=== PATIENT | male | born 1960 | race Caucasian/White ===

== ENCOUNTER 2016-05-28 11:46 | Emergency (ER) | payer OTHER ==
[~2016-05-28] VITALS: Ht 185.4 cm; Wt 72.6 kg
--- NOTE | 2016-05-28 11:46 | NUR ---
1143--Patient was BIBA and taken to bed 01 immediately.
--- NOTE | 2016-05-28 11:47 | NUR ---
1143--Dr. Trevino/RT at bedside to intubate patient.
[2016-05-28 11:49] VITALS: BP 137/78
--- NOTE | 2016-05-28 11:55 | NUR ---
XRAY at bedside.
--- NOTE | 2016-05-28 11:58 | NUR ---
PT BIBA FOR RSI FOR TRANSFER TO [facility] S/P FALL AND LEFT HEAD INJURY. SECURITIES ADVISER STATES PT WAS AT HOME AND FELL, STRIKING THE LEFT SIDE OF HIS HEAD, IMMEDIATE SEIZURE ACTIVITY. HX UNKNOWN.PARAMEDICS DENIES N/V/D; SKIN IS PINK/CLAMMY, PARAMEDICS DENIES ANY FEVER, CP, OR COUGH AT THIS TIME; PATIENT POSITIONED FOR COMFORT; ER MD AT BEDSIDE, DR. JACKSON PERFORMING RSI AT BEDSIDE.
--- NOTE | 2016-05-28 11:59 | NUR ---
Patient was transported to [facility] for continuation of care--[facility] 114/ME 152.
--- NOTE | 2016-05-28 12:00 | NUR ---
Patient to be transferred to [facility]. Is being transferred due to higher level of care. Receiving facility has accepting physician and available space. [facility] notified and report given to tony Han. ETS 20 mins.
[2016-05-28 12:04] VITALS: BP 137/78
[2016-05-28] MEDS ORDERED: MIDAZOLAM 2 MG/2 ML VIAL IVP ONE (12:05)
[2016-05-28] MEDS ORDERED: ETOMIDATE 20 MG/10 ML VIAL IVP ONE ×3 (12:05→12:20)
[2016-05-28] MEDS ORDERED: ROCURONIUM 50 MG/5 ML VIAL IV ONE ×2 (12:05→12:20)
== END 2016-05-28 12:00 | disposition short-term general hospital (02) ==
LOC: MED 11:46
DX: S00.12XA Contusion of left eyelid and periocular area, initial encounter (principal); J96.00 Acute respiratory failure, unspecified whether with hypoxia or hypercapnia; W19.XXXA Unspecified fall, initial encounter; Y93.89 Activity, other specified; Y92.89 Other specified places as the place of occurrence of the external cause; Y99.8 Other external cause status
CPT/HCPCS: 31500; 71010; 96374; 99291; J3490; Q0092